=== PATIENT | female | born 2000 | race Caucasian/White ===

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

== ENCOUNTER 2023-02-22 23:26 | Emergency (ER) | payer MEDICAID ==
[~2023-02-22] VITALS: Ht 157.5 cm; Wt 64.0 kg
[~2023-02-22 23:26] MED LIST: CIPR-226 PO; ONDA4TAB11 PO; PHEN-640 PO
[2023-02-22 23:45] VITALS: BP 131/77
--- NOTE | 2023-02-23 00:09 | ED GU-Female ---
General Chief Complaint: OB < 20 WEEKS Stated Complaint: SHARP PX LOWER RT SIDE,10 WKS PREG,THROAT PX, Nursing Triage Note: PT AMB TO RM 6 W C/O INTERMITTENT SHARP RLQ PAIN AND SORE THROAT SX LAST NIGHT. PT APPROX 10 WKS , DUE 09/20/23. A&OX4. Source: patient Exam Limitations: no limitations History of Present Illness Date Seen by Provider: Feb 23, 2023 Time Seen by Provider: 00:09 Initial Comments Patient is a 22-year-old female who presents to the emergency room with a chief complaint of right-sided abdominal discomfort as well as a sore throat over the last 24 hours. Patient states that she is concerned that she may have strep throat. She states one of her siblings had it within recent weeks. She denies fevers or chills. She denies cough. She has not taken anything for the pain. She is approximately 10 weeks with an estimated due date of September 20, 2023. She denies dysuria, urgency or frequency. No diarrhea, no black or bloody stool. No abnormal vaginal discharge. Timing/Duration: yesterday Severity/Quality: moderate (Moderate sore throat), sharp (Sharp pain right mid abdomen) Activities at Onset: none Associated Symptoms: abdominal pain, other (Sore throat) Allergies and Home Medications Allergies Coded Allergies: Penicillins (Verified Allergy, Unknown, 11/04/19) amoxicillin (Verified Allergy, Unknown, 11/04/19) latex (Verified Allergy, Unknown, 11/04/19) Patient Home Medication List Home Medication List Reviewed: Yes Ciprofloxacin HCl (Cipro) 250 Mg Tablet, 250 MG PO BID Prescribed by: TIFFANIE PEÑALOZA on 05/04/20 1318 Ondansetron (Ondansetron Odt) 4 Mg Tab.rapdis, 4 MG PO Q6H Prescribed by: OBED CORDOVA on 11/04/19 2305 Phenazopyridine HCl (Pyridium) 200 Mg Tablet, 200 MG PO TID Prescribed by: TIFFANIE PEÑALOZA on 05/04/20 1318 Review of Systems Review of Systems Constitutional: see HPI EENTM: throat pain Respiratory: no symptoms reported Cardiovascular: no symptoms reported Gastrointestinal: abdominal pain : Yes Expected Date of Delivery: Sep 20, 2023 Musculoskeletal: no symptoms reported Skin: no symptoms reported Psychiatric/Neurological: No Symptoms Reported Past Rutdumb-Guunot-Wpkqyl Hx Patient Social History Tobacco Use?: Yes Tobacco type used: Cigarettes Smoking Status: Current Everyday Smoker Use of E-Cig and/or Vaping dev: No Substance use?: Yes Substance type: Marijuana Alcohol Use?: No Seasonal Allergies Seasonal Allergies: No Past Medical History Surgeries: No Respiratory: No Cardiac: No Neurological: No Expected Date of Delivery: Sep 20, 2023 Last Menstrual Period: Dec 16, 2022 Genitourinary: Yes Renal Failure Gastrointestinal: No Musculoskeletal: No Endocrine: No HEENT: No Cancer: No Psychosocial: Yes Anxiety Integumentary: No Blood Disorders: No Physical Exam Vital Signs Vital Signs - First Documented 02/22/23 23:45 Temp 37.2 Pulse 104 Resp 18 B/P (MAP) 131/77 (95) Pulse Ox 100 O2 Delivery Room Air Capillary Refill : Less Than 3 Seconds Height, Weight, BMI Height: '" Weight: lbs. oz. kg; 25.00 BMI Method: General Appearance: WD/WN, no apparent distress HEENT: pharyngeal erythema (Mild pharyngeal erythema) Neck: full range of motion, supple; No lymphadenopathy (R), No lymphadenopathy (L) Cardiovascular: regular rate, rhythm Respiratory: lungs clear, normal breath sounds, no respiratory distress, no accessory muscle use Gastrointestinal: normal bowel sounds, soft, tenderness (Minimal tenderness to the right of the umbilicus, no rebound, no involuntary guarding) Extremities: normal range of motion, non-tender, normal inspection, no pedal edema Neurologic/Psychiatric: alert, normal mood/affect, oriented x 3 Skin: normal color, warm/dry Progress/Results/Core Measures Suspected Sepsis SIRS Temperature: Pulse: 104 Respiratory Rate: 18 Blood Pressure 131 /77 Mean: 95 Results/Orders Lab Results Laboratory Tests Test 02/22/23 23:48 02/23/23 00:21 Range/Units Urine Color YELLOW Urine Clarity CLEAR Urine pH 6.0 5-9 Urine Specific [place] 1.015 L 1.016-1.022 Urine Protein NEGATIVE NEGATIVE Urine Glucose (UA) NEGATIVE NEGATIVE Urine Ketones NEGATIVE NEGATIVE Urine Nitrite NEGATIVE NEGATIVE Urine Bilirubin NEGATIVE NEGATIVE Urine Urobilinogen 0.2 < = 1.0 MG/DL Urine Leukocyte Esterase NEGATIVE NEGATIVE Urine RBC (Auto) NEGATIVE NEGATIVE Urine RBC NONE /HPF Urine WBC RARE /HPF Urine Squamous Epithelial Cells RARE /HPF Urine Crystals NONE /LPF Urine Bacteria NEGATIVE /HPF Urine Casts NONE /LPF Urine Mucus NEGATIVE /LPF Urine Culture Indicated NO Group A Streptococcus Screen NEGATIVE NEGATIVE My Orders Orders - CITLALI RODNEY MD Ua Culture If Indicated (02/23/23 00:15) Rapid Strep A Screen (02/23/23 00:15) Acetaminophen Tablet (Tylenol Tablet) (02/23/23 00:15) Throat Culture Strep A Confirm (02/23/23 00:21) Medications Given in ED Current Medications Medications Dose Ordered Sig/Cameron Route Start Time Stop Time Status Last Admin Dose Admin Acetaminophen 1,000 mg ONCE ONCE PO 02/23/23 00:15 02/23/23 00:17 DC 02/23/23 00:34 1,000 MG Vital Signs/I&O 02/22/23 23:45 Temp 37.2 Pulse 104 Resp 18 B/P (MAP) 131/77 (95) Pulse Ox 100 O2 Delivery Room Air Capillary Refill : Less Than 3 Seconds Blood Pressure Mean: 95 Progress Note : Time: 00:47 Progress Note Patient seen and evaluated. Evaluation today includes physical exam, rapid stre p test, urinalysis. Pertinent physical exam findings mild erythema in the posterior pharynx without exudate or tonsillar enlargement. No anterior cervical lymphadenopathy. No rashes. Stable vital signs, afebrile. Mild tenderness to the right of the umbilicus without involuntary guarding or rebound tenderness. No lower extremity edema or calf tenderness. Vital signs are stabl e. Differential diagnosis based on history and physical exam, strep pharyngitis, constipation, urinary tract infection. Labs independently reviewed and evaluated by me. Her urinalysis is completely clear, no bacteria, nitrite or leukocyte Estrace. Rapid strep test is negative. Patient is treated with a gram of Tylenol here in the emergency department. Recommendations for supportive care, good hydration, nutrition. Close follow-up with her OB provider at [facility]. Return precautions provided in both verbal and written format. All questions are sought and answered. Patient is stable for discharge. Departure Impression Primary Impression: Pharyngitis Qualified Codes: J02.9 - Acute pharyngitis, unspecified Additional Impression: 10 weeks gestation of Disposition: HOME, SELF-CARE Condition: Stable Departure-Patient Inst. Decision time for Depature: 00:49 Referrals: TRINO GARCIA MD (PCP/Family) Primary Care Physician Patient Instructions: Sore Throat, Adult ED Add. Discharge Instructions: Drink plenty of fluids to stay well-hydrated. Eat small meals frequently throughout the day. Jcvh-tee-bofbjhe extra strength Tylenol, 2 tablets every 6 hours as needed for throat pain. Warm salt water gargles may also help. If you develop high fever, rash, worsening pain please return to the emergency department for reevaluation. Please follow-up with Dr. Garcia as scheduled. Copy Copies To 1: TRINO GARCIA MD, KATHRYN M MD Feb 23, 2023 00:09
[2023-02-23] MEDS ORDERED: ACETAMINOPHEN 500 MG TAB (TYLENOL) PO ONE (00:15)
[2023-02-23 00:21] LABS: BILIRUBIN,URINE NEGATIVE (NEGATIVE); CLARITY,URINE CLEAR; COLOR,URINE YELLOW; GLUCOSE, URINE (UA) NEGATIVE (NEGATIVE); KETONES,URINE NEGATIVE (NEGATIVE); LEUKOCYTE ESTERASE ,URINE NEGATIVE (NEGATIVE); NITRITE,URINE NEGATIVE (NEGATIVE); PROTEIN,URINE NEGATIVE (NEGATIVE)
[2023-02-23 00:31] LABS: BACTERIA,URINE NEGATIVE /HPF; SQUAMOUS EPITHELIAL CELL,UR RARE /HPF; WBC,URINE RARE /HPF
== END 2023-02-23 00:54 | disposition home or self-care (01) ==
LOC: EDUNIT# 23:26 → ER 23:30
DX: O99.511 Diseases of the respiratory system complicating pregnancy, first trimester (principal); J02.9 Acute pharyngitis, unspecified; O26.891 Other specified pregnancy related conditions, first trimester; R10.33 Periumbilical pain; O99.331 Smoking (tobacco) complicating pregnancy, first trimester; F17.210 Nicotine dependence, cigarettes, uncomplicated; Z3A.10 10 weeks gestation of pregnancy; Z91.040 Latex allergy status
CPT/HCPCS: 81000; 87430; 99283

== ENCOUNTER 2023-07-27 15:29 | Emergency (ER) | payer MEDICAID, OTHER ==
[~2023-07-27] VITALS: Ht 157.5 cm; Wt 75.4 kg
--- NOTE | 2023-07-27 16:03 | ED General ---
General Chief Complaint: General Problems/Pain Stated Complaint: ABD CYST Nursing Triage Note: PT AMBULATE TO ROOM [facility] WITHOUT DIFFICULTY WITH C/O "LUMP" ON HER UPPER ABDOMEN STARTING TODAY. PT REPORTS HER MOTHER IN LAW WENT TO NURSING SCHOOL AND TOLD HER IT MAY BE A BLOOD CLOT. PT REPORTS SHE IS 32/1 WEEKS . Source of Information: Patient Exam Limitations: No Limitations History of Present Illness Date Seen by Provider: Jul 27, 2023 Time Seen by Provider: 15:30 Initial Comments 22-year-old female at 32 weeks and 1 day gestation coming in due to feeling a mass on her abdomen. She is never felt this before. When she pushes on it it hurts somewhat. No redness or anything around it. She first noticed it this morning. Otherwise denying any other acute complaints. This has been a healthy , no vaginal bleeding, she feels baby moving, no loss of fluids like her water has broken. Allergies and Home Medications Allergies Coded Allergies: Penicillins (Verified Allergy, Unknown, 11/04/19) amoxicillin (Verified Allergy, Unknown, 11/04/19) latex (Verified Allergy, Unknown, 11/04/19) Patient Home Medication List Home Medication List Reviewed: Yes Ciprofloxacin HCl (Cipro) 250 Mg Tablet, 250 MG PO BID Prescribed by: TIFFANIE PEÑALOZA on 05/04/20 1318 Ondansetron (Ondansetron Odt) 4 Mg Tab.rapdis, 4 MG PO Q6H Prescribed by: OBED CORDOVA on 11/04/19 2305 Phenazopyridine HCl (Pyridium) 200 Mg Tablet, 200 MG PO TID Prescribed by: TIFFANIE PEÑALOZA on 05/04/20 1318 Review of Systems Review of Systems Constitutional: No fever EENTM: no symptoms reported Respiratory: no symptoms reported Cardiovascular: no symptoms reported Gastrointestinal: no symptoms reported Skin: see HPI Past Atyqdte-Bcjjya-Jqbryx Hx Patient Social History Tobacco Use?: Yes Tobacco type used: Cigarettes Smoking Status: Current Everyday Smoker Smokeless Tobacco Frequency: Never a User Use of E-Cig and/or Vaping dev: No Use of E-Cig and/or Vaping Javi: Never a User Substance use?: No Alcohol Use?: No Pt feels they are or have been: No Seasonal Allergies Seasonal Allergies: No Past Medical History Surgeries: No Respiratory: No Cardiac: No Neurological: No Genitourinary: Yes Renal Failure Gastrointestinal: No Musculoskeletal: No Endocrine: No HEENT: No Cancer: No Psychosocial: Yes Anxiety Integumentary: No Blood Disorders: No Physical Exam Vital Signs Vital Signs - First Documented 07/27/23 15:34 Temp 36.8 Pulse 110 Resp 18 B/P (MAP) 138/77 (97) O2 Delivery Room Air Capillary Refill : Less Than 3 Seconds Height, Weight, BMI Height: '" Weight: lbs. oz. kg; 30.00 BMI Method: General Appearance: No Apparent Distress, WD/WN Eyes: Bilateral Eye Normal Inspection HEENT: PERRL/EOMI, Normal ENT Inspection, Pharynx Normal Neck: Full Range of Motion, Normal Inspection, Non Tender, Supple Respiratory: Chest Non Tender, Lungs Clear, Normal Breath Sounds, No Accessory Muscle Use, No Respiratory Distress Cardiovascular: Regular Rate, Rhythm, No Edema Gastrointestinal: Normal Bowel Sounds, Non Tender, Soft, Other (gravid, small mobile lump on her upper abdomen subcutaneous) Back: Normal Inspection, No CVA Tenderness Extremity: Normal Capillary Refill, Normal Inspection, Normal Range of Motion, Non Tender, No Calf Tenderness Neurologic/Psychiatric: Alert, No Motor/Sensory Deficits, Normal Mood/Affect Skin: Normal Color, Warm/Dry Progress/Results/Core Measures Suspected Sepsis SIRS Temperature: Pulse: 110 Respiratory Rate: 18 Blood Pressure 138 /77 Mean: 97 Results/Orders Vital Signs/I&O 07/27/23 15:34 Temp 36.8 Pulse 110 Resp 18 B/P (MAP) 138/77 (97) O2 Delivery Room Air Capillary Refill : Less Than 3 Seconds Blood Pressure Mean: 97 Progress Note : Progress Note 22-year-old female coming for a lump on her abdomen. ABCs were intact and vitals were stable on presentation. Her skin looks normal, no infection. It does not feel fluctuant. It feels like a lipoma. I did a [id number] ultrasound showing no subcutaneous fluid, it is mixed echogenicity small mass w hich is consistent with a lipoma in the subcutaneous tissue. I will have her follow-up with her regular doctor in regards to this. Departure Impression Primary Impression: Lipoma Qualified Codes: D17.1 - Benign lipomatous neoplasm of skin and subcutaneous tissue of trunk Disposition: 01 HOME, SELF-CARE Condition: Stable Departure-Patient Inst. Decision time for Depature: 16:05 Referrals: TRINO GARCIA MD (PCP/Family) Primary Care Physician Patient Instructions: Lipoma Add. Discharge Instructions: This feels like a fatty lump which is not cancer called a lipoma. Please follow-up with your regular doctor to discuss getting this out if it is painful for you. If your skin becomes very red with the redness spreading or you notice drainage with it, we will need to be seen again. GRACIE PRICE MD Jul 27, 2023 16:03
[2023-07-27 16:21] VITALS: BP 127/68
== END 2023-07-27 16:21 | disposition home or self-care (01) ==
LOC: EDUNIT# 15:29 → ER FS 15:31
DX: O9A.113 Malignant neoplasm complicating pregnancy, third trimester (principal); D17.1 Benign lipomatous neoplasm of skin and subcutaneous tissue of trunk; O99.333 Smoking (tobacco) complicating pregnancy, third trimester; F17.210 Nicotine dependence, cigarettes, uncomplicated; Z3A.32 32 weeks gestation of pregnancy; Z91.040 Latex allergy status
CPT/HCPCS: 99281